=== PATIENT | male | born 1960 ===

== ENCOUNTER 2019-01-29 21:27 | Emergency (ER) | payer OTHER ==
[~2019-01-29] VITALS: Ht 172.7 cm; Wt 79.5 kg
[2019-01-29] MEDS ORDERED: normal saline 1000ML IV soln IVB ONE (22:10)
[2019-01-29 22:55] LABS: ALANINE AMINOTRANSFERASE 28 U/L (12-78); ALBUMIN 3.8 G/DL (3.4-5.0); ALBUMIN/GLOBULIN RATIO 0.8 (1.1-1.5); ALKALINE PHOSPHATASE 80 IU/L (46-116); ANION GAP 9 (8-16); ASPARTATE AMINO TRANSFERASE 10 U/L (10-37); BILIRUBIN,TOTAL 0.3 MG/DL (0.1-1.0); BLOOD UREA NITROGEN 28 MG/DL (7-18); BUN/CREATININE RATIO 25.5 (5.4-32.0); CALCIUM 9.1 MG/DL (8.5-10.1); CHLORIDE 101 MMOL/L (99-107); POTASSIUM 3.8 MMOL/L (3.5-5.1); SODIUM 134 MMOL/L (135-145); TOTAL CARBON DIOXIDE 24.4 MMOL/L (24-32); TOTAL PROTEIN 8.3 G/DL (6.4-8.2); eGFR 68 ML/MIN
[2019-01-29 22:57] LABS: GLUCOSE 360 MG/DL (70-104)
[2019-01-29 23:51] VITALS: BP 175/84
== END 2019-01-29 23:55 ==
LOC: ER 21:27
DX: I10 Essential (primary) hypertension (principal); E11.9 Type 2 diabetes mellitus without complications; Z02.89 Encounter for other administrative examinations
CPT/HCPCS: 36415; 80053; 82948; 99283; J7030